=== PATIENT | male | born 1960 | race Hispanic/Latino ===

== ENCOUNTER 2017-01-01 19:01 | Inpatient (IN) | payer MEDICARE ==
--- NOTE | 2017-01-01 22:01 | Emergency Department Report ---
HPI - General Chief Complaint: Chest Pain Time Seen by Provider: 01/01/17 21:25 - HPI HPI: Room 18 The patient is a 56-year-old male presenting with a chief complaint of chest pain. Patient states his symptoms began this afternoon at 17:30 while standing in the kitchen. The patient states he developed substernal chest pain radiating to his left neck and left upper extremity described as a pressure in nature. Patient states she became short of breath and diaphoretic. Patient is to nausea but denies vomiting. The patient currently gives his pain a score of 7/10. Location: Left chest, see above Duration: Constant since 17:30 Quality: Pressure Severity: 7/10 Modifying factors: [see above] Context: [see above] Mode of transportation: [not driving] ED Past Medical Hx - Past Medical History Previous Medical History?: Yes Hx Hypertension: Yes Hx CVA: Yes (TIA) Hx Heart Attack/AMI: Yes (1988 & 1998) Hx Kidney Stones: Yes Hx COPD: Yes Additional medical history: "blood clots" - Surgical History Hx Coronary Stent: Yes Hx Open Heart Surgery: Yes Hx Pacemaker: Yes Additional Surgical History: shoulder(right) - Family History Family history: no significant - Social History Smoking Status: Never Smoker Substance Use Type: None - Medications Home Medications: Home Medications Medication Instructions Recorded Confirmed Last Taken Type Aspirin [Aspirin BABY CHEW TAB] 81 mg PO DAILY 03/28/15 05/10/16 Unknown History Atorvastatin Calcium [Lipitor] 20 mg PO QHS 03/28/15 05/10/16 Unknown History Fluticasone [Flonase] 1 spray NS QDAY 03/28/15 05/10/16 Unknown History Omeprazole [PriLOSEC] 20 mg PO BID 03/28/15 05/10/16 Unknown History Ranolazine [Ranexa] 500 mg PO BID 03/28/15 05/10/16 Unknown History Apixaban [Eliquis] 5 mg PO BID 04/24/16 05/10/16 Unknown History Clopidogrel [Plavix] 75 mg PO QDAY 05/10/16 05/10/16 Unknown History Ferrous Sulfate [Feosol 325 MG tab] 325 mg PO QDAY 05/10/16 05/10/16 Unknown History Promethazine [Phenergan TAB] 25 mg PO ONCE 05/10/16 05/10/16 Unknown History Lisinopril [Zestril TAB] 2.5 mg PO QDAY #30 tablet 05/13/16 Unknown Rx Metoprolol Xl [Metoprolol 50 mg PO QDAY #60 tablet 05/13/16 Unknown Rx SUCCINATE ER TAB] oxyCODONE /ACETAMINOPHEN [Percocet 1 tab PO Q12H PRN #10 tablet 05/13/16 Unknown Rx 5/325] ED Review of Systems ROS: Stated complaint: CHEST PAIN,HX OF CVA Other details as noted in HPI Comment: All other systems reviewed and negative Constitutional: diaphoresis Eyes: denies: eye pain, eye discharge, vision change ENT: denies: ear pain, throat pain Respiratory: shortness of breath. denies: cough, wheezing Cardiovascular: chest pain Endocrine: no symptoms reported Gastrointestinal: nausea. denies: vomiting Genitourinary: denies: urgency, dysuria Musculoskeletal: denies: back pain, joint swelling, arthralgia Skin: denies: rash, lesions Neurological: paresthesias Psychiatric: denies: anxiety, depression Hematological/Lymphatic: denies: easy bleeding, easy bruising Physical Exam - Physical Exam Vital Signs: Vital Signs 01/01/17 01/01/17 19:53 21:23 Temperature 98.2 F 98.4 F Pulse Rate 80 73 Respiratory 20 16 Rate Blood Pressure 113/72 117/71 [Left] O2 Sat by Pulse 100 99 Oximetry Physical Exam: GENERAL: The patient is well-developed well-nourished male lying on stretcher not appearing to be in acute distress. [] HEENT: Normocephalic. Atraumatic. Extraocular motions are intact. Patient has moist mucous membranes. NECK: Supple. No meningitic signs are noted. There is no adenopathy noted. CHEST/LUNGS: Clear to auscultation. There is no respiratory distress noted. HEART/CARDIOVASCULAR: Regular. There is no tachycardia. There is no gallop rub or murmur. ABDOMEN: Abdomen is soft, nontender. Patient has normal bowel sounds. There is no abdominal distention. SKIN: There is no rash. There is no edema. There is no diaphoresis. NEURO: The patient is awake, alert, and oriented. The patient is cooperative. The patient has normal speech MUSCULOSKELETAL: There is no evidence of acute injury. ED Course Vital Signs 01/01/17 01/01/17 19:53 21:23 Temperature 98.2 F 98.4 F Pulse Rate 80 73 Respiratory 20 16 Rate Blood Pressure 113/72 117/71 [Left] O2 Sat by Pulse 100 99 Oximetry ED Medical Decision Making - Lab Data Result diagrams: 01/01/17 22:14 01/01/17 22:14 Laboratory Tests 01/01/17 01/01/17 22:14 22:14 WBC 6.0 RBC 4.47 Hgb 13.7 Hct 41.0 MCV 92 MCH 31 MCHC 33 RDW 13.5 Plt Count 145 Lymph % (Auto) 18.0 [place] % (Auto) 9.9 H Eos % (Auto) 1.8 Baso % (Auto) 0.4 Lymph # 1.1 L [place] # 0.6 Eos # 0.1 Baso # 0.0 Seg Neutrophils % 69.9 Seg Neutrophils # 4.2 Sodium 136 L Potassium 4.4 Chloride 100.9 Carbon Dioxide 19 L Anion Gap 21 BUN 9 Creatinine 0.7 L Estimated GFR > 60 BUN/Creatinine Ratio 12.85 Glucose 90 Calcium 8.6 Troponin T < 0.010 - EKG Data -: EKG Interpreted by Me Rate: normal - EKG Data When compared to previous EKG there are: changes noted Interpretation: other (paced rhythm with frequent PVCs) - Radiology Data Radiology results: image reviewed (chest x-ray) interpreted by me: Chest x-ray- no focal infiltrates, no pneumothorax - Differential Diagnosis ACS, GERD, pericarditis Critical care attestation.: If time is entered above; I have spent that time in minutes in the direct care of this critically ill patient, excluding procedure time. ED Disposition Clinical Impression: Chest pain Disposition: OP ADMITTED IP TO THIS HOSP Is pt being admited?: Yes Does the pt Need Aspirin: Yes Condition: Fair Instructions: Chest Pain (ED) Referrals: PRIMARY CARE, [Primary Care Provider] - 3-5 Days Time of Disposition: 23:22 (hospitalist paged)
[2017-01-01] MEDS ORDERED: ASPIRIN PO ONE (22:03)
[2017-01-01] MEDS ORDERED: SUBLIMAZE IV ONE (22:03)
[2017-01-01] MEDS ORDERED: ZOFRAN IV ONE (22:03)
[2017-01-01 22:52] LABS: Basophils % (Auto) 0.4 % (0.0-1.8); Eosinophils % (Auto) 1.8 % (0.0-4.3); Hemoglobin 13.7 gm/dl (11.8-15.2); Mean Corpuscular HGB Conc 33 % (32-34); Mean Corpuscular Hemoglobin 31 pg (28-32); Mean Corpuscular Volume 92 fl (84-94); Platelet Count 145 K/mm3 (140-440); Red Blood Count 4.47 M/mm3 (3.65-5.03); Red Cell Distribution Width 13.5 % (13.2-15.2)
[2017-01-01 23:02] LABS: BUN/Creatinine Ratio 12.85; Blood Urea Nitrogen 9 mg/dL (9-20); Calcium 8.6 mg/dL (8.4-10.2); Carbon Dioxide 19 mmol/L (22-30); Chloride 100.9 mmol/L (98-107); Glucose 90 mg/dL (75-100); Sodium 136 mmol/L (137-145)
[2017-01-01 23:15] LABS: Anion Gap 21 mmol/L; Potassium 4.4 mmol/L (3.6-5.0)
[2017-01-01 23:29] LABS: INR 1.07 (0.87-1.13); Partial Thromboplastin Time 24.9 Sec. (24.2-36.6)
[2017-01-02] MEDS ORDERED: BENADRYL IV ONE (00:12)
[2017-01-02] MEDS ORDERED: MILK OF MAGNESIA PO PRN (00:37)
[2017-01-02] MEDS ORDERED: TYLENOL PO PRN (00:37)
[2017-01-02] MEDS ORDERED: DULCOLAX PR PRN (00:37)
--- NOTE | 2017-01-02 00:41 | History and Physical Report ---
History of Present Illness Date of examination: 01/02/17 History of present illness: 56-year-old man with a history of coronary artery disease, hypertension, COPD, history of CVA comes emergency room with complaint of chest pain. Pain is in the left chest which she described as a sensation, constant lasting for an hour , intensity 7/10, radiating to the left arm. He cannot identify exacerbating or relieving factors. He admits to nausea, shortness of breath and diaphoresis. Patient denies cough, abdominal pain, hematochezia, dysuria, frequency, focal weakness, dysarthria, fever chills, polydipsia polyuria, hot or cold intolerance , easy bruisability, or rash or bleeding from mucosal membrane, rhinorrhea, epistaxis, earache, tinnitus, blurry vision, eye discharge, anxiety, depression. Other review of systems negative PAST SURGICAL HISTORY: CABG, cholecystectomy, AICD, she'll to surgery SOCIAL HISTORY: Denies alcohol, tobacco, drugs FAMILY HISTORY: Coronary artery disease Medications and Allergies Allergies Allergy/AdvReac Type Severity Reaction Status Date / Time Iodinated Contrast Media - Allergy Unknown Verified 03/28/15 12:52 IV Dye ketorolac tromethamine Allergy Unknown Verified 03/28/15 12:52 [From Toradol] morphine Allergy Unknown Verified 03/28/15 12:52 nitroglycerin Allergy Unknown Verified 03/28/15 12:52 Home Medications Medication Instructions Recorded Confirmed Last Taken Type Aspirin [Aspirin BABY CHEW TAB] 81 mg PO DAILY 03/28/15 05/10/16 Unknown History Atorvastatin Calcium [Lipitor] 20 mg PO QHS 03/28/15 05/10/16 Unknown History Fluticasone [Flonase] 1 spray NS QDAY 03/28/15 05/10/16 Unknown History Omeprazole [PriLOSEC] 20 mg PO BID 03/28/15 05/10/16 Unknown History Ranolazine [Ranexa] 500 mg PO BID 03/28/15 05/10/16 Unknown History Apixaban [Eliquis] 5 mg PO BID 04/24/16 05/10/16 Unknown History Clopidogrel [Plavix] 75 mg PO QDAY 05/10/16 05/10/16 Unknown History Ferrous Sulfate [Feosol 325 MG tab] 325 mg PO QDAY 05/10/16 05/10/16 Unknown History Promethazine [Phenergan TAB] 25 mg PO ONCE 05/10/16 05/10/16 Unknown History Lisinopril [Zestril TAB] 2.5 mg PO QDAY #30 tablet 05/13/16 Unknown Rx Metoprolol Xl [Metoprolol 50 mg PO QDAY #60 tablet 05/13/16 Unknown Rx SUCCINATE ER TAB] oxyCODONE /ACETAMINOPHEN [Percocet 1 tab PO Q12H PRN #10 tablet 05/13/16 Unknown Rx 5/325] Active Meds: Active Medications Apixaban (Eliquis) 5 mg PO BID [facility] Aspirin (Baby Aspirin) 81 mg PO DAILY MARY CARMEN Atorvastatin Calcium (Lipitor) 20 mg PO QHS MARY CARMEN Clopidogrel Bisulfate (Plavix) 75 mg PO QDAY MARY CARMEN Ferrous Sulfate (Feosol) 325 mg PO QDAY MARY CARMEN Fluticasone Propionate (Flonase) mcg NS QDAY MARY CARMEN Lisinopril (Zestril) 2.5 mg PO QDAY MARY CARMEN Metoprolol Succinate (Toprol Xl) 50 mg PO QDAY [facility] Miscellaneous Medication (Omeprazole [Prilosec]) 20 mg PO BID MARY CARMEN Ranolazine (Ranexa Er) 500 mg PO BID [facility] Exam - Physical Exam Narrative exam: Gen. appearance: Patient lying in bed, no apparent distress HEENT: Normocephalic, atraumatic, pupils equally round and reactive to light, extraocular movement intact, and no sclericterus,. No JVD or thyromegaly or nodule,neck supple, no carotid bruit ,mucous membranes moist, no exudate or erythema Heart: S1, S2, regular rate and rhythm Lungs: Clear to auscultation bilaterally, breathing comfortable Abdomen: Positive bowel sounds, nontender, nondistended, no organomegaly Extremity: No edema, cyanosis, clubbing Skin: No rash, nodules, warm, dry Neuro: Oriented 3, cranial nerves II-12 intact, speech is fluent, motor and sensory intact - Constitutional Vitals: Temp Pulse Resp BP Pulse Ox 98.4 F 71 18 117/71 99 01/01/17 21:23 01/01/17 22:20 01/01/17 22:20 01/01/17 21:23 01/01/17 22:20 Results - Labs CBC & Chem 7: 01/01/17 22:14 01/01/17 22:14 Labs: Abnormal lab results 01/01/17 01/01/17 Range/Units 22:14 22:14 [place] % (Auto) 9.9 H (0.0-7.3) % Lymph # 1.1 L (1.2-5.4) K/mm3 Sodium 136 L (137-145) mmol/L Carbon Dioxide 19 L (22-30) mmol/L Creatinine 0.7 L (0.8-1.5) mg/dL - Imaging and Cardiology EKG: image reviewed Chest x-ray: image reviewed Assessment and Plan Unstable angina Coronary artery disease Hypertension COPD Admits medicine Check cardiac enzymes, liver profile, consult cardiology Continue outpatient medications, DVT prophylaxis
[2017-01-02 04:23] LABS: Creatine Kinase 50 units/L (55-170)
[2017-01-02] MEDS: FLONASE NS SCH (09:00)
[2017-01-02] MEDS: BABY ASPIRIN PO SCH (09:11)
[2017-01-02] MEDS: PROTONIX PO SCH ×2 (09:11→22:00)
[2017-01-02] MEDS: ELIQUIS PO SCH ×2 (09:11→22:00)
[2017-01-02] MEDS: TOPROL XL PO SCH (09:12)
[2017-01-02] MEDS: PLAVIX PO SCH (09:12)
[2017-01-02] MEDS: FEOSOL PO SCH (09:12)
[2017-01-02] MEDS: PERCOCET 5/325 PO PRN ×4 (09:20→21:59)
[2017-01-02] MEDS: ZOFRAN IV PRN (09:20)
[2017-01-02] MEDS ORDERED: RANEXA ER PO SCH (10:00)
--- NOTE | 2017-01-02 10:19 | XRay Report ---
AP CHEST: HISTORY: chest pain Borderline heart size. A 3-lead pacemaker device is in position. Previous CABG changes. The lungs are clear. No evidence for pneumonia, CHF or pneumothorax. IMPRESSION: Borderline heart size. Lungs clear.
[2017-01-02] MEDS: ZESTRIL PO SCH (10:30)
[2017-01-02 11:38] LABS: Creatine Kinase MB 1.1 ng/mL (0.0-4.0)
[2017-01-02 11:41] LABS: Creatine Kinase 43 units/L (55-170)
--- NOTE | 2017-01-02 11:46 | Consultation ---
History of Present Illness Consult date: 01/02/17 Consult reason: chest pain History of present illness: 56 YO man with h/o CAD s/p CABG, Ishcemic cardiomyopathy s/p ICD, and hypertension who presented to ED with episodes of left sided pressure type of chest pain with associated dyspnea. He has not had any syncope, pre-syncope, or palpitations. He is normally followed by a denture model maker in [place]. Of note, he was hospitalized at this hospital last year in 05/2016. Repeat coronary angiogram at that time had revealed stable CAD with patent SVG to RCA, patent SVG to Diagonal, occluded SVG to Circumflex system, and non obstructive disease of the [place] Circumflex and LAD. This was unchanged from previous coronary angiogram in 2011. He is currently chest pain free and PA has been ruled out with serial cardiac enzymes. ECG currently reveals NSR with Ventricular pacing and occasional PVCs. Past History Past Medical History: CAD, heart failure, hypertension Past Surgical History: CABG Social history: denies: smoking Family history: CAD Medications and Allergies Allergies Allergy/AdvReac Type Severity Reaction Status Date / Time Iodinated Contrast Media - Allergy Unknown Verified 03/28/15 12:52 IV Dye ketorolac tromethamine Allergy Unknown Verified 03/28/15 12:52 [From Toradol] morphine Allergy Unknown Verified 03/28/15 12:52 nitroglycerin Allergy Unknown Verified 03/28/15 12:52 Home Medications Medication Instructions Recorded Confirmed Last Taken Type Aspirin [Aspirin BABY CHEW TAB] 81 mg PO DAILY 03/28/15 05/10/16 Unknown History Atorvastatin Calcium [Lipitor] 20 mg PO QHS 03/28/15 05/10/16 Unknown History Fluticasone [Flonase] 1 spray NS QDAY 03/28/15 05/10/16 Unknown History Omeprazole [PriLOSEC] 20 mg PO BID 03/28/15 05/10/16 Unknown History Ranolazine [Ranexa] 500 mg PO BID 03/28/15 05/10/16 Unknown History Apixaban [Eliquis] 5 mg PO BID 04/24/16 05/10/16 Unknown History Clopidogrel [Plavix] 75 mg PO QDAY 05/10/16 05/10/16 Unknown History Ferrous Sulfate [Feosol 325 MG tab] 325 mg PO QDAY 05/10/16 05/10/16 Unknown History Promethazine [Phenergan TAB] 25 mg PO ONCE 05/10/16 05/10/16 Unknown History Lisinopril [Zestril TAB] 2.5 mg PO QDAY #30 tablet 05/13/16 Unknown Rx Metoprolol Xl [Metoprolol 50 mg PO QDAY #60 tablet 05/13/16 Unknown Rx SUCCINATE ER TAB] oxyCODONE /ACETAMINOPHEN [Percocet 1 tab PO Q12H PRN #10 tablet 05/13/16 Unknown Rx 5/325] Active Meds: Active Medications Acetaminophen (Tylenol) 650 mg PO Q4H PRN PRN Reason: Pain MILD(1-3)/Fever >100.5/LE Apixaban (Eliquis) 5 mg PO BID [facility] Last Admin: 01/02/17 09:11 Dose: 5 mg Aspirin (Baby Aspirin) 81 mg PO DAILY [facility] Last Admin: 01/02/17 09:11 Dose: 81 mg Atorvastatin Calcium (Lipitor) 20 mg PO QHS [facility] Bisacodyl (Dulcolax) 10 mg [place] QDAY PRN PRN Reason: Constipation unrelieved by [facility] Clopidogrel Bisulfate (Plavix) 75 mg PO QDAY [facility] Last Admin: 01/02/17 09:12 Dose: 75 mg Ferrous Sulfate (Feosol) 325 mg PO QDAY [facility] Last Admin: 01/02/17 09:12 Dose: 325 mg Fluticasone Propionate (Flonase) 50 mcg NS QDAY [facility] Lisinopril (Zestril) 2.5 mg PO QDAY [facility] Last Admin: 01/02/17 10:30 Dose: Not Given Magnesium Hydroxide (Milk Of Magnesia) 30 ml PO Q4H PRN PRN Reason: Constipation Metoprolol Succinate (Toprol Xl) 50 mg PO QDAY [facility] Last Admin: 01/02/17 09:12 Dose: 50 mg Ondansetron HCl (Zofran) 4 mg IV Q4H PRN PRN Reason: N/V unrelieved by Reglan Last Admin: 01/02/17 09:20 Dose: 4 mg Oxycodone/Acetaminophen (Percocet 5/325) 2 tab PO Q4H PRN PRN Reason: Pain, Moderate (4-6) Last Admin: 01/02/17 09:20 Dose: 2 tab Pantoprazole Sodium (Protonix) 20 mg PO BID [facility] Last Admin: 01/02/17 09:11 Dose: 20 mg Ranolazine (Ranexa Er) 500 mg PO BID [facility] Last Admin: 01/02/17 09:12 Dose: 500 mg Review of Systems All systems: negative (per hpi) Physical Examination Vital Signs Temp Pulse Resp BP Pulse Ox 98.2 F 80 20 113/72 100 01/01/17 19:53 01/01/17 19:53 01/01/17 19:53 01/01/17 19:53 01/01/17 19:53 General appearance: no acute distress HEENT: Positive: PERRL Neck: Positive: neck supple Cardiac: Positive: Reg Rate and Rhythm Lungs: Positive: clear to auscultation, Normal Breath Sounds Neuro: Positive: Grossly Intact Abdomen: Positive: Soft, Active Bowel Sounds Male genitourinary: Positive: normal Extremities: Absent: edema Results 01/01/17 22:14 01/01/17 22:14 Cardiac Enzymes 01/02/17 01/02/17 Range/Units 03:20 10:09 CK-MB (CK-2) 1.0 1.1 (0.0-4.0) ng/mL Assessment and Plan Recurrent chest pain in pt with CAD with CABG in 1988 - stable CAD based on cardiac cath within last 6 months. PA has been ruled out [facility] 2011: patent SVG to RCA patent SVG to Diagonal occluded SVG to Circumflex system non obstructive disease of the [place] Circumflex and LAD DIAZ was not used. Ejection fraction 30-35% No ischemia on MPI 04/24/16 [facility] 05/2016 unchanged from 2011 Ischemic Cardiomyopathy s/p AICD in situ Hx of DVT on eliquis as an outpatient Recommend: Will defer further ischemic evaluation. Will intensify anti-anginal therapy and increase Ranexa. If there is no recurrence of chest pain over next 24 hours, he can be discharged with outpatient f/u with his primary denture model maker.
--- NOTE | 2017-01-02 13:35 | Progress Note ---
Assessment and Plan Assessment and plan: 1. Chest pain. Patient with a left heart catheterization in 2011 which revealed patent SVG to RCA, patent SVG to diagonal, occluded SVG to circumflex system, nonobstructive disease of the [place] circumflex and LAD and DIAZ was not used. Ejection fraction 30-35%. Patient with no ischemia on MPI 04/24/16. LH was unchanged from 2011. Cardiology to defer ischemic evaluation. Cardiology recommends increase of her Ranexa to intensify antianginal therapy. 2. Ischemic cardiomyopathy. Patient is status post AICD in situ. 3. Hypertension. Resume antihypertensive medications. 4. COPD. Compensated. Continue current medications. 5. DVT prophylaxis. Patient on eliquis History Interval history: 56 YO man with h/o CAD s/p CABG, Ishcemic cardiomyopathy s/p ICD, and hypertension who presented to ED with episodes of left sided pressure type of chest pain with associated dyspnea. He has not had any syncope, pre-syncope, or palpitations. He is normally followed by a technical consultant in [place]. Of note, he was hospitalized at this hospital last year in 05/2016. Repeat coronary angiogram at that time had revealed stable CAD with patent SVG to RCA, patent SVG to Diagonal, occluded SVG to Circumflex system, and non obstructive disease of the [place] Circumflex and LAD. This was unchanged from previous coronary angiogram in 2011. He is currently chest pain free and MD has been ruled out with serial cardiac enzymes. ECG currently reveals NSR with Ventricular pacing and occasional PVCs. Hospitalist Physical - Constitutional Vitals: Temp Pulse Resp BP Pulse Ox 98.0 F 67 20 113/65 98 01/02/17 08:40 01/02/17 08:40 01/02/17 08:40 01/02/17 08:40 01/02/17 08:40 General appearance: Present: no acute distress - EENT Eyes: Present: PERRL, EOM intact ENT: hearing intact, clear oral mucosa, dentition normal - Neck Neck: Present: supple, normal ROM - Respiratory Respiratory effort: normal Respiratory: bilateral: CTA - Cardiovascular Rhythm: regular Heart Sounds: Present: S1 & S2. Absent: gallop, rub - Extremities Extremities: no ischemia, No edema, Full ROM - Abdominal General gastrointestinal: soft, non-tender, non-distended, normal bowel sounds - Integumentary Integumentary: Present: clear, warm, dry - Neurologic Neurologic: CNII-XII intact, moves all extremities Results - Labs CBC & Chem 7: 01/01/17 22:14 01/01/17 22:14 Labs: Laboratory Last Values WBC 6.0 K/mm3 (4.5-11.0) 01/01/17 22:14 RBC 4.47 M/mm3 (3.65-5.03) 01/01/17 22:14 Hgb 13.7 gm/dl (11.8-15.2) 01/01/17 22:14 Hct 41.0 % (35.5-45.6) 01/01/17 22:14 MCV 92 fl (84-94) 01/01/17 22:14 MCH 31 pg (28-32) 01/01/17 22:14 MCHC 33 % (32-34) 01/01/17 22:14 RDW 13.5 % (13.2-15.2) 01/01/17 22:14 Plt Count 145 K/mm3 (140-440) 01/01/17 22:14 Lymph % (Auto) 18.0 % (13.4-35.0) 01/01/17 22:14 [place] % (Auto) 9.9 % (0.0-7.3) H 01/01/17 22:14 Eos % (Auto) 1.8 % (0.0-4.3) 01/01/17 22:14 Baso % (Auto) 0.4 % (0.0-1.8) 01/01/17 22:14 Lymph # 1.1 K/mm3 (1.2-5.4) L 01/01/17 22:14 [place] # 0.6 K/mm3 (0.0-0.8) 01/01/17 22:14 Eos # 0.1 K/mm3 (0.0-0.4) 01/01/17 22:14 Baso # 0.0 K/mm3 (0.0-0.1) 01/01/17 22:14 Seg Neutrophils % 69.9 % (40.0-70.0) 01/01/17 22:14 Seg Neutrophils # 4.2 K/mm3 (1.8-7.7) 01/01/17 22:14 PT 13.8 Sec. (12.2-14.9) 01/01/17 22:28 INR 1.07 (0.87-1.13) 01/01/17 22:28 APTT 24.9 Sec. (24.2-36.6) 01/01/17 22:28 Sodium 136 mmol/L (137-145) L 01/01/17 22:14 Potassium 4.4 mmol/L (3.6-5.0) 01/01/17 22:14 Chloride 100.9 mmol/L (98-107) 01/01/17 22:14 Carbon Dioxide 19 mmol/L (22-30) L 01/01/17 22:14 Anion Gap 21 mmol/L 01/01/17 22:14 BUN 9 mg/dL (9-20) 01/01/17 22:14 Creatinine 0.7 mg/dL (0.8-1.5) L 01/01/17 22:14 Estimated GFR > 60 ml/min 01/01/17 22:14 BUN/Creatinine Ratio 12.85 % 01/01/17 22:14 Glucose 90 mg/dL (75-100) 01/01/17 22:14 Calcium 8.6 mg/dL (8.4-10.2) 01/01/17 22:14 Total Creatine Kinase 43 units/L (55-170) L 01/02/17 10:09 CK-MB (CK-2) 1.1 ng/mL (0.0-4.0) 01/02/17 10:09 CK-MB (CK-2) Rel Index 2.5 (0-4) 01/02/17 10:09 Troponin T < 0.010 ng/mL (0.00-0.029) 01/02/17 10:09
[2017-01-02] MEDS: RANEXA ER PO SCH (22:00)
[2017-01-03] MEDS: PERCOCET 5/325 PO PRN ×4 (02:36→20:13)
[2017-01-03 06:23] LABS: Basophils % (Auto) 0.9 % (0.0-1.8); Eosinophils % (Auto) 2.8 % (0.0-4.3); Hemoglobin 13.7 gm/dl (11.8-15.2); Mean Corpuscular HGB Conc 33 % (32-34); Mean Corpuscular Hemoglobin 30 pg (28-32); Mean Corpuscular Volume 90 fl (84-94); Platelet Count 118 K/mm3 (140-440); Red Blood Count 4.54 M/mm3 (3.65-5.03); Red Cell Distribution Width 13.6 % (13.2-15.2); White Blood Count 4.2 K/mm3 (4.5-11.0)
[2017-01-03 06:31] LABS: Anion Gap 17 mmol/L; BUN/Creatinine Ratio 11.25; Blood Urea Nitrogen 9 mg/dL (9-20); Calcium 8.7 mg/dL (8.4-10.2); Carbon Dioxide 23 mmol/L (22-30); Chloride 103.2 mmol/L (98-107); Glucose 99 mg/dL (75-100); Potassium 4.6 mmol/L (3.6-5.0); Sodium 139 mmol/L (137-145)
[2017-01-03] MEDS: FEOSOL PO SCH (10:12)
[2017-01-03] MEDS: PLAVIX PO SCH (10:12)
[2017-01-03] MEDS: ZESTRIL PO SCH (10:13)
[2017-01-03] MEDS: BABY ASPIRIN PO SCH (10:14)
[2017-01-03] MEDS: PROTONIX PO SCH ×2 (10:14→22:06)
[2017-01-03] MEDS: TOPROL XL PO SCH (10:14)
[2017-01-03] MEDS: ZOFRAN IV PRN ×2 (10:15→20:13)
[2017-01-03] MEDS: FLONASE NS SCH (10:23)
[2017-01-03] MEDS: RANEXA ER PO SCH ×2 (10:23→22:06)
[2017-01-03] MEDS: ELIQUIS PO SCH ×2 (10:23→22:06)
--- NOTE | 2017-01-03 12:00 | Admit Criteria Form ---
Admission Criteria Documentation: CHEST PAIN Clinical Indications for Admission to Inpatient Care (Place 'X' for any and all applicable criteria): Admission is indicated for chest pain and ANY ONE of the following(1)(2)(3)(4)(5 ): [ ]I. Angina with acute coronary syndrome (Also use Myocardial Infarction or Angina guideline) [ ]II. Hemodynamic instability [ ]III. Angina needing acute intervention as indicated by ALL of the following( 11)(12): [ ]a) Unstable angina is present as indicated by angina that is ANY ONE of the following: [ ]i) New onset [ ]ii) Nocturnal [ ]iii) Prolonged at rest [ ]iv) Progressive [X ]b) Angina warrants acute intervention as indicated by ANY ONE of the following: [ ]i) Recurrent angina (e.g, not responding as previously to treatment) [X ]ii) Angina at rest or with low-level activities despite initial medical therapy [ ]iii) New or presumably new ST-segment depression on ECG [ ]iv) Signs or symptoms of heart failure (eg, dyspnea, pulmonary edema) [ ]v) New or worsening mitral regurgitation [ ]vi) Hemodynamic instability [ ]vii) Dangerous arrhythmia (eg, sustained ventricular tachycardia) [ ]viii) History of percutaneous coronary intervention within 6 months [ ]ix) History of coronary artery bypass graft surgery [ ]x) ÓSCAR risk score of 2 or greater[A] [ ]xi) History of Diabetes(14) [ ]xii) High-risk cardiac ischemia findings on noninvasive testing (e.g, echocardiogram, treadmill testing, nuclear scan) [ ]xiii) Chronic renal insufficiency (ie, estimated GFR less than 60 mL/min/1.732m) [ ]xiv) Left ventricular ejection fraction less than 40% [ ]IV. Evidence of NV (eg, cardiac biomarkers positive, ST-segment elevation on ECG) also use Myocardial Infarction Criteria Form. [ ]V. Pulmonary edema [ ]. Respiratory distress [ ]VII. Chest pain indicative of serious diagnosis other than coronary artery disease (eg, aortic dissection) [ ]VIII. Contraindications and/or Inappropriate clinical situations for Observational Care in patients with Chest Pain, when ANY ONE of the following is required: [ ]a) Patient with risk factor for pulmonary embolism, acute coronary syndrome and myocardial infarction (18) [ ]b) Patient with Pulmonary embolism require an average LOS of 4.3 days, therefore emergency department observation management is inappropriate 18,23 [ ]c) Painful condition/s in the elderly, have the highest rate of recidivism after emergency department observation management (10.8%) 20,21,22 [ ]d) Elevated cardiac biomarker requires intensive and exhaustive care (19) [ ]IX. General contraindications and/or Inappropriate clinical situations for Observational Care in patients with Chest Pain, when ANY ONE of the following is required: [ ]a) Prediction of prolongation of LOS based on ANY ONE of the following may be considered as a contraindication for observational care 2, 3, 4, 5, 6, 7, 8, 9, 10, 11 [ ]i) Age > 65 yrs. [ ]ii) Patient arriving by ambulance [ ]iii) Patient with high acuity [ ]iv) Patient requiring vital sign monitoring [ ]v) Patient on IV medication [ ]b) Systolic blood pressures 180mmHg 3,12 [ ]c) Patient with altered mental status including delirium and other alteration of consciousness, (3) [ ]d) Patient whose discharge disposition will be to a halfway home or rehabilitation home should not be managed in Emergency Department Observation Unit. CMS rule requires 3 days hospital stay before such placement. 3,13 [ ]e) Patient with failure to thrive due to broad array of etiologies 3,16,17 [ ]f) Inability to ambulate 3,14 Extended stay beyond goal length of stay may be needed for (1)(28): [ ]a) Specific condition diagnosed after evaluation (eg, pulmonary embolism, aortic dissection) [ ]b) Unstable angina [ ]c) Continued suspicion of acute coronary syndrome with inability to complete needed cardiac evaluation (eg, patient clinically unable to undergo stress testing) [ ]d) Myocardial infarction (Contents from ANGINA and CHEST PAIN clinical indications for admission to inpatient care have been integrated in this form) The original [facility] [employer] content created by [employer] has been revised. The portions of the content which have been revised are identified through the use of italic text or in bold, and [facility] has neither reviewed nor approved the modified material. All other unmodified content is copyright [facility] [employer]. Please see references footnoted in the original [facility] [employer] edition 2016 Admission Criteria Met: Yes
--- NOTE | 2017-01-03 12:57 | Progress Note ---
Assessment and Plan Assessment and plan: 1. Chest pain. Patient with a left heart catheterization in 2011 which revealed patent SVG to RCA, patent SVG to diagonal, occluded SVG to circumflex system, nonobstructive disease of the [place] circumflex and LAD and DIAZ was not used. Ejection fraction 30-35%. Patient with no ischemia on MPI 04/24/16. LH was unchanged from 2011. Cardiology to defer ischemic evaluation. Cardiology recommends increase of her Ranexa to intensify antianginal therapy. However, patient still complaining of chest pain. 2. Ischemic cardiomyopathy. Patient is status post AICD in situ. 3. Hypertension. Resume antihypertensive medications. 4. COPD. Compensated. Continue current medications. 5. DVT prophylaxis. Patient on eliquis History Interval history: Patient is still complaining of chest pain 04/16 in intensity. Hospitalist Physical - Constitutional Vitals: Temp Pulse Resp BP Pulse Ox 97.4 F L 74 20 116/60 99 01/03/17 07:30 01/03/17 10:14 01/03/17 07:30 01/03/17 10:14 01/03/17 05:16 General appearance: Present: no acute distress - EENT Eyes: Present: PERRL, EOM intact ENT: hearing intact, clear oral mucosa, dentition normal - Neck Neck: Present: supple, normal ROM - Respiratory Respiratory effort: normal Respiratory: bilateral: CTA - Cardiovascular Rhythm: regular Heart Sounds: Present: S1 & S2. Absent: gallop, rub - Extremities Extremities: no ischemia, No edema, Full ROM - Abdominal General gastrointestinal: soft, non-tender, non-distended, normal bowel sounds - Integumentary Integumentary: Present: clear, warm, dry - Neurologic Neurologic: CNII-XII intact, moves all extremities Results - Labs CBC & Chem 7: 01/03/17 05:33 01/03/17 05:33 Labs: Laboratory Last Values WBC 4.2 K/mm3 (4.5-11.0) L 01/03/17 05:33 RBC 4.54 M/mm3 (3.65-5.03) 01/03/17 05:33 Hgb 13.7 gm/dl (11.8-15.2) 01/03/17 05:33 Hct 41.0 % (35.5-45.6) 01/03/17 05:33 MCV 90 fl (84-94) 01/03/17 05:33 MCH 30 pg (28-32) 01/03/17 05:33 MCHC 33 % (32-34) 01/03/17 05:33 RDW 13.6 % (13.2-15.2) 01/03/17 05:33 Plt Count 118 K/mm3 (140-440) L 01/03/17 05:33 Lymph % (Auto) 36.0 % (13.4-35.0) H 01/03/17 05:33 [place] % (Auto) 10.5 % (0.0-7.3) H 01/03/17 05:33 Eos % (Auto) 2.8 % (0.0-4.3) 01/03/17 05:33 Baso % (Auto) 0.9 % (0.0-1.8) 01/03/17 05:33 Lymph # 1.5 K/mm3 (1.2-5.4) 01/03/17 05:33 [place] # 0.4 K/mm3 (0.0-0.8) 01/03/17 05:33 Eos # 0.1 K/mm3 (0.0-0.4) 01/03/17 05:33 Baso # 0.0 K/mm3 (0.0-0.1) 01/03/17 05:33 Seg Neutrophils % 49.8 % (40.0-70.0) 01/03/17 05:33 Seg Neutrophils # 2.1 K/mm3 (1.8-7.7) 01/03/17 05:33 PT 13.8 Sec. (12.2-14.9) 01/01/17 22:28 INR 1.07 (0.87-1.13) 01/01/17 22:28 APTT 24.9 Sec. (24.2-36.6) 01/01/17 22:28 Sodium 139 mmol/L (137-145) 01/03/17 05:33 Potassium 4.6 mmol/L (3.6-5.0) 01/03/17 05:33 Chloride 103.2 mmol/L (98-107) 01/03/17 05:33 Carbon Dioxide 23 mmol/L (22-30) 01/03/17 05:33 Anion Gap 17 mmol/L 01/03/17 05:33 BUN 9 mg/dL (9-20) 01/03/17 05:33 Creatinine 0.8 mg/dL (0.8-1.5) 01/03/17 05:33 Estimated GFR > 60 ml/min 01/03/17 05:33 BUN/Creatinine Ratio 11.25 % 01/03/17 05:33 Glucose 99 mg/dL (75-100) 01/03/17 05:33 Calcium 8.7 mg/dL (8.4-10.2) 01/03/17 05:33 Total Creatine Kinase 43 units/L (55-170) L 01/02/17 10:09 CK-MB (CK-2) 1.1 ng/mL (0.0-4.0) 01/02/17 10:09 CK-MB (CK-2) Rel Index 2.5 (0-4) 01/02/17 10:09 Troponin T < 0.010 ng/mL (0.00-0.029) 01/02/17 10:09
--- NOTE | 2017-01-03 15:29 | Progress Note ---
Assessment and Plan Recurrent chest pain in pt with CAD with CABG in 1988 - stable CAD based on cardiac cath within last 6 months. [facility] 2011: patent SVG to RCA patent SVG to Diagonal occluded SVG to Circumflex system non obstructive disease of the [place] Circumflex and LAD DIAZ was not used. Ejection fraction 30-35% No ischemia on MPI 04/24/16 [facility] 05/2016 unchanged from 2011 Thrombocytopenia Ischemic Cardiomyopathy s/p AICD in situ Hx of DVT on eliquis as an outpatient Recommend: Continue medical therapy for coronary artery disease. Subjective Date of service: 01/03/17 Interval history: Patient resting in bed comfortably. He denies chest pain. Noted a drop in platelets since admission. Objective Vital Signs Temp Pulse Pulse Pulse Pulse Resp BP 01/03/17 11:00 70 20 01/03/17 10:14 74 116/60 01/03/17 10:13 74 116/60 01/03/17 07:30 97.4 F L 66 20 01/03/17 05:16 01/03/17 04:23 70 01/02/17 23:00 98.8 F 69 18 01/02/17 21:29 01/02/17 19:48 98.0 F 73 18 01/02/17 16:20 97.4 F L 71 20 BP BP Pulse Ox 01/03/17 11:00 97 01/03/17 10:14 01/03/17 10:13 01/03/17 07:30 116/60 01/03/17 05:16 99 01/03/17 04:23 01/02/17 23:00 110/59 96 01/02/17 21:29 98 01/02/17 19:48 113/55 100 01/02/17 16:20 101/56 94 - Physical Examination General: No Apparent Distress HEENT: Positive: PERRL Neck: Positive: neck supple Cardiac: Positive: Reg Rate and Rhythm Lungs: Positive: Decreased Breath Sounds Neuro: Positive: Grossly Intact Extremities: Absent: edema - Labs and Meds CBC 01/03/17 Range/Units 05:33 WBC 4.2 L (4.5-11.0) K/mm3 RBC 4.54 (3.65-5.03) M/mm3 Hgb 13.7 (11.8-15.2) gm/dl Hct 41.0 (35.5-45.6) % Plt Count 118 L (140-440) K/mm3 Lymph # 1.5 (1.2-5.4) K/mm3 [place] # 0.4 (0.0-0.8) K/mm3 Eos # 0.1 (0.0-0.4) K/mm3 Baso # 0.0 (0.0-0.1) K/mm3 Comprehensive Metabolic Panel 01/03/17 Range/Units 05:33 Sodium 139 (137-145) mmol/L Potassium 4.6 (3.6-5.0) mmol/L Chloride 103.2 (98-107) mmol/L Carbon Dioxide 23 (22-30) mmol/L BUN 9 (9-20) mg/dL Creatinine 0.8 (0.8-1.5) mg/dL Glucose 99 (75-100) mg/dL Calcium 8.7 (8.4-10.2) mg/dL - Imaging and Cardiology EKG: image reviewed
[2017-01-03] MEDS ORDERED: AMBIEN PO PRN (20:07)
[2017-01-04] MEDS: ZOFRAN IV PRN ×2 (05:38→09:23)
[2017-01-04] MEDS: PERCOCET 5/325 PO PRN ×2 (05:38→09:38)
[2017-01-04 09:06] VITALS: BP 100/52
[2017-01-04] MEDS: PROTONIX PO SCH (09:21)
[2017-01-04] MEDS: TOPROL XL PO SCH (09:21)
[2017-01-04] MEDS: BABY ASPIRIN PO SCH (09:21)
[2017-01-04] MEDS: ZESTRIL PO SCH (09:22)
[2017-01-04] MEDS: RANEXA ER PO SCH (09:23)
[2017-01-04] MEDS: ELIQUIS PO SCH (09:23)
[2017-01-04] MEDS: FEOSOL PO SCH (09:23)
[2017-01-04] MEDS: PLAVIX PO SCH (09:23)
[2017-01-04 10:05] LABS: Hematocrit 43.1 % (35.5-45.6); Hemoglobin 14.1 gm/dl (11.8-15.2); Mean Corpuscular HGB Conc 33 % (32-34); Mean Corpuscular Hemoglobin 30 pg (28-32); Mean Corpuscular Volume 93 fl (84-94); Platelet Count 128 K/mm3 (140-440); Red Blood Count 4.66 M/mm3 (3.65-5.03); Red Cell Distribution Width 13.6 % (13.2-15.2); White Blood Count 4.8 K/mm3 (4.5-11.0)
--- NOTE | 2017-01-04 10:42 | Progress Note ---
Assessment and Plan Recurrent chest pain in pt with CAD with CABG in 1988 - stable CAD based on cardiac cath within last 6 months. [facility] 2011: patent SVG to RCA patent SVG to Diagonal occluded SVG to Circumflex system non obstructive disease of the [place] Circumflex and LAD DIAZ was not used. Ejection fraction 30-35% No ischemia on MPI 04/24/16 [facility] 05/2016 unchanged from 2011 Thrombocytopenia Ischemic Cardiomyopathy s/p AICD in situ Hx of DVT on eliquis as an outpatient Recommend: Continue medical therapy for coronary artery disease and ischemic cardiomyopathy. Cardiac status is stable. Subjective Date of service: 01/04/17 Interval history: Patient resting in bed comfortably. He denies chest pain. Objective Vital Signs Temp Pulse Pulse Pulse Resp BP BP 01/04/17 09:21 70 100/52 01/04/17 08:00 97.3 F L 75 20 01/04/17 05:52 98.0 F 69 20 01/04/17 04:00 77 01/04/17 00:51 97.9 F 74 74 18 01/03/17 20:39 97.4 F L 62 20 97/57 01/03/17 16:55 98.1 F 84 20 104/73 01/03/17 12:05 97.8 F 78 20 105/70 01/03/17 12:00 82 01/03/17 11:00 70 20 BP Pulse Ox 01/04/17 09:21 01/04/17 08:00 100/52 98 01/04/17 05:52 130/17 98 01/04/17 04:00 01/04/17 00:51 99/56 98 01/03/17 20:39 99 01/03/17 16:55 97 01/03/17 12:05 97 01/03/17 12:00 01/03/17 11:00 97 - Physical Examination General: No Apparent Distress HEENT: Positive: PERRL Neck: Positive: neck supple Cardiac: Positive: Other (v-paced) Lungs: Positive: Decreased Breath Sounds Neuro: Positive: Grossly Intact Extremities: Absent: edema - Labs and Meds CBC 01/04/17 Range/Units 09:54 WBC 4.8 (4.5-11.0) K/mm3 RBC 4.66 (3.65-5.03) M/mm3 Hgb 14.1 (11.8-15.2) gm/dl Hct 43.1 (35.5-45.6) % Plt Count 128 L (140-440) K/mm3 - Imaging and Cardiology EKG: image reviewed
--- NOTE | 2017-01-04 10:42 | Discharge Summary ---
Providers - Providers Date of Admission: 01/02/17 00:37 Date of discharge: 01/04/17 Attending physician: GEOVANNI RICKETTS Primary care physician: PRODUCT MERCHANDISER Hospitalization Reason for admission: chest pain Condition: Fair Pertinent studies: cxr-no acute abn Hospital course: Mr. Cox presented to the ER with chest pain, acute myocardial infarction was ruled out based negative cardiac enzymes; he was seen by the ice cream dipper and no further cardiac intervention was recommended; cardiology increased ranexa to 1000mg bid; he was cleared for discharge by cardiology for outpatient follow up. Condition at discharge - stable 31 minutes spent on discharge Disposition: DISCHARGED TO HOME OR SELFCARE - Discharge Diagnoses (1) Chest pain Status: Acute Qualifiers: Chest pain type: C Comment: due to GERD (2) Coronary artery disease Status: Chronic Qualifiers: Coronary Disease-Associated Artery/Lesion type: C [place] vs. transplanted heart: N Associated angina: A (3) HLD (hyperlipidemia) Status: Chronic Qualifiers: Hyperlipidemia type: H Core Measure Documentation - Palliative Care Palliative Care/ Comfort Measures: Not Applicable - Core Measures Any of the following diagnoses?: none Exam - Constitutional Vitals: Temp Pulse Resp BP Pulse Ox 97.3 F L 70 20 100/52 98 01/04/17 08:00 01/04/17 09:21 01/04/17 08:00 01/04/17 09:21 01/04/17 08:00 General appearance: Present: no acute distress, well-nourished - EENT Eyes: Present: PERRL, EOM intact. Absent: scleral icterus, conjunctival injection ENT: hearing intact, clear oral mucosa, no oropharyngeal erythema, no poor dentition - Neck Neck: Present: supple, normal ROM. Absent: enlarged thyroid, masses or JVD - Respiratory Respiratory effort: normal Respiratory: negative: diminished, rales, rhonchi, wheezing - Cardiovascular Rhythm: regular Heart Sounds: Present: S1 & S2. Absent: gallop - Extremities Extremities: no ischemia, pulses intact, pulses symmetrical, No edema Peripheral Pulses: within normal limits - Abdominal General gastrointestinal: Present: soft, non-tender, non-distended, normal bowel sounds Male genitourinary: Present: deferred - Rectal Rectal Exam: deferred - Integumentary Integumentary: Present: clear - Musculoskeletal Musculoskeletal: strength equal bilaterally, generalized weakness - Psychiatric Psychiatric: appropriate mood/affect, intact judgment & insight, cooperative - Neurologic Neurologic: CNII-XII intact, moves all extremities Plan Activity: advance as tolerated Diet: low cholesterol, low salt Follow up with: PRIMARY CAREMD [Primary Care Provider] - 3-5 Days LUÍS ALMODOVAR MD [Staff Physician] - 7 Days Prescriptions: Ranolazine ER [Ranexa ER] 1,000 mg PO BID #60 tablet
--- NOTE | 2017-01-04 13:25 | Query- Chest Pain ---
Aissatou Dempsey Tony Date:____01/04/17 Junior Mechanical Engineer/CDS:___Matt Navarroanne marie Phone#: [phone] Exercise your independent professional judgment when responding to query. Questions asked do not imply a particular answer is desired or expected. We greatly appreciate your clarification on this issue. Clinical Documentation States: 56 year old male was admitted on 01/02/17. The patient was admitted for chest pain. The progress note (01/03/17) states " Cardiac status is stable, we'll continue medial therapy for small vessel coronary artery disease and ischemic cardiomyopathy. " The Progress note (01/03/17) assessment and plan states " Chest pain. Patient with a left heart catheterization 2011 . Ischemic cardiomyopathy " Please document the etiology of Chest Pain: [ ] Myocardial Infarction [ ] Pneumonia [ ] Mediastinitis [ ] Costochondritis [ ] Pulmonary Embolism [ ] Coronary Artery Disease [x ] GERD [ ] Other: [ ] Comment/Explanation: Present on Admission: [ x] Yes (Y) [ ] Clinically undeterminable (W) [ ] No(N) Please document response in your Progress Notes and/or Discharge Summary and indicate if the condition was present on admission. VÍCTOR
== END 2017-01-04 13:40 | disposition home or self-care (01) | DRG 392 ==
LOC: ED 19:01 → 4A 01-02 00:37
PROVIDERS: ADMIT Internal Medicine; ATTEND Hospitalist
DX: K21.9 Gastro-esophageal reflux disease without esophagitis (principal); I25.110 Atherosclerotic heart disease of native coronary artery with unstable angina pectoris; I25.5 Ischemic cardiomyopathy; I10 Essential (primary) hypertension; J44.9 Chronic obstructive pulmonary disease, unspecified; D69.6 Thrombocytopenia, unspecified; Z86.73 Personal history of transient ischemic attack (TIA), and cerebral infarction without residual deficits; Z87.442 Personal history of urinary calculi; Z95.0 Presence of cardiac pacemaker; Z95.1 Presence of aortocoronary bypass graft; Z90.49 Acquired absence of other specified parts of digestive tract; Z82.49 Family history of ischemic heart disease and other diseases of the circulatory system; Z88.6 Allergy status to analgesic agent; Z88.8 Allergy status to other drugs, medicaments and biological substances; Z91.041 Radiographic dye allergy status; Z79.82 Long term (current) use of aspirin
CPT/HCPCS: 36415; 71010; 80048; 82550; 82553; 84484; 85025; 85027; 85610; 85730; 93005; 93010; 96374; 96375; A9270-GY; J1200; J2405; J3010

== ENCOUNTER 2017-03-16 18:22 | Inpatient (IN) | payer MEDICARE ==
[2017-03-16 19:26] LABS: Basophils % (Auto) 0.6 % (0.0-1.8); Eosinophils % (Auto) 1.2 % (0.0-4.3); Hematocrit 41.1 % (35.5-45.6); Mean Corpuscular HGB Conc 34 % (32-34); Mean Corpuscular Hemoglobin 31 pg (28-32); Mean Corpuscular Volume 92 fl (84-94); Platelet Count 124 K/mm3 (140-440); Red Blood Count 4.47 M/mm3 (3.65-5.03); Red Cell Distribution Width 13.7 % (13.2-15.2); White Blood Count 5.7 K/mm3 (4.5-11.0)
[2017-03-16 19:35] LABS: INR 0.98 (0.87-1.13)
[2017-03-16 19:36] LABS: Partial Thromboplastin Time 27.5 Sec. (24.2-36.6)
[2017-03-16 19:44] LABS: Anion Gap 19 mmol/L; BUN/Creatinine Ratio 21.66; Blood Urea Nitrogen 13 mg/dL (9-20); Calcium 9.1 mg/dL (8.4-10.2); Carbon Dioxide 24 mmol/L (22-30); Glucose 135 mg/dL (75-100); Potassium 3.5 mmol/L (3.6-5.0); Sodium 142 mmol/L (137-145)
[2017-03-16] MEDS ORDERED: ZOFRAN IV ONE (20:48)
[2017-03-16] MEDS ORDERED: DILAUDID IV ONE (20:48)
--- NOTE | 2017-03-16 20:49 | Emergency Department Report ---
ED Chest Pain HPI - General Chief Complaint: Chest Pain Stated Complaint: CHEST PAIN Time Seen by Provider: 03/16/17 20:33 Source: patient, RN notes reviewed, old records reviewed Mode of arrival: Ambulatory Limitations: No Limitations - History of Present Illness Initial Comments: This is a 56-year-old male. I have evaluated him in the past. His mobile phlebotomist is not local. Past medical history includes heart disease status post CABG, ischemic cardiac myopathy with an ICD, hypertension, history of DVT, currently on anticoagulation ( eliquis) The patient endorses compliance with his anticoagulation. The patient presents to the ER complaining of chest pain. The chest pain is left-sided. It radiates to the back, arm and neck. There is shortness of breath, nausea and diaphoresis. It is intermittent. It worsens with physical exertion and decreases with rest. There is no leg pain. There is no leg swelling. No recent trips greater than 4 hours. No recent hospitalizations. Patient states that his pain typically improves with hydromorphone. The patient had a cardiac catheterization performed at this hospital in June , the overall recommendations were to continue current medical therapy and risk factor modification. Patient was seen in conjunction with cardiology, and he recommended improving/ optimizing his antianginal therapy. The patient indicates he does not develop anaphylaxis to aspirin, and he can take aspirin. MD Complaint: chest pain -: Gradual Onset: during rest Pain Location: left chest Pain Radiation: LUE Severity: moderate Quality: aching Consistency: intermittent Improves With: medication-other, movement Worsens With: exertion re: nausea, dyspnea Treatments Prior to Arrival: aspirin Aspirin use within the Past 7 Days: (1) Yes - Related Data On Oral Contraceptives: No Home Medications Medication Instructions Recorded Confirmed Last Taken Aspirin [Aspirin BABY CHEW TAB] 81 mg PO DAILY 03/28/15 03/16/17 Unknown Atorvastatin Calcium [Lipitor] 20 mg PO QHS 03/28/15 03/16/17 Unknown Fluticasone [Flonase] 1 spray NS QDAY 03/28/15 03/16/17 Unknown Omeprazole [PriLOSEC] 20 mg PO BID 03/28/15 03/16/17 Unknown Apixaban [Eliquis] 5 mg PO BID 04/24/16 03/16/17 Unknown Clopidogrel [Plavix] 75 mg PO QDAY 05/10/16 03/16/17 Unknown Ferrous Sulfate [Feosol 325 MG tab] 325 mg PO QDAY 05/10/16 03/16/17 Unknown Promethazine [Phenergan TAB] 25 mg PO ONCE 05/10/16 03/16/17 Unknown Previous Rx's Medication Instructions Recorded Last Taken Type Lisinopril [Zestril TAB] 2.5 mg PO QDAY #30 tablet 05/13/16 Unknown Rx Metoprolol Xl [Metoprolol 50 mg PO QDAY #60 tablet 05/13/16 Unknown Rx SUCCINATE ER TAB] oxyCODONE /ACETAMINOPHEN [Percocet 1 tab PO Q12H PRN #10 tablet 05/13/16 Unknown Rx 5/325 mg] Ranolazine ER [Ranexa ER] 1,000 mg PO BID #60 tablet 01/04/17 Unknown Rx Allergies Allergy/AdvReac Type Severity Reaction Status Date / Time Iodinated Contrast Media - Allergy Unknown Verified 03/16/17 18:59 IV Dye ketorolac tromethamine Allergy Unknown Verified 03/16/17 18:59 [From Toradol] morphine Allergy Unknown Verified 03/16/17 18:59 nitroglycerin Allergy Unknown Verified 03/16/17 18:59 ÓSCAR score - Óscar Score Age > 65: (0) No Aspirin use within the Past 7 Days: (1) Yes 3 or more CAD Risk Factors: (1) Yes 2 or more Angina events in past 24 hrs: (1) Yes Known CAD with more than 50% Stenosis: (0) No Elevated Cardiac Markers: (0) No ST Deviation Greater than 0.5mm: (0) No ÓSCAR Score: 3 ED Review of Systems ROS: Stated complaint: CHEST PAIN Other details as noted in HPI Constitutional: malaise Eyes: denies: vision change ENT: denies: epistaxis Respiratory: shortness of breath Cardiovascular: chest pain Gastrointestinal: denies: melena, hematochezia Genitourinary: as per HPI Musculoskeletal: back pain Skin: denies: lesions Neurological: weakness Psychiatric: anxiety ED Past Medical Hx - Past Medical History Hx Hypertension: Yes Hx CVA: Yes (TIA) Hx Heart Attack/AMI: Yes (1988 & 1998) Hx Congestive Heart Failure: Yes Hx Kidney Stones: Yes Hx COPD: Yes Additional medical history: "blood clots" - Surgical History Hx Coronary Stent: Yes Hx Open Heart Surgery: Yes (CABG/ TRIPLE BYPASS) Hx Pacemaker: Yes Hx Cholecystectomy: Yes Additional Surgical History: shoulder(right) - Social History Smoking Status: Never Smoker Substance Use Type: None - Medications Home Medications: Home Medications Medication Instructions Recorded Confirmed Last Taken Type Aspirin [Aspirin BABY CHEW TAB] 81 mg PO DAILY 03/28/15 03/16/17 Unknown History Atorvastatin Calcium [Lipitor] 20 mg PO QHS 03/28/15 03/16/17 Unknown History Fluticasone [Flonase] 1 spray NS QDAY 03/28/15 03/16/17 Unknown History Omeprazole [PriLOSEC] 20 mg PO BID 03/28/15 03/16/17 Unknown History Apixaban [Eliquis] 5 mg PO BID 04/24/16 03/16/17 Unknown History Clopidogrel [Plavix] 75 mg PO QDAY 05/10/16 03/16/17 Unknown History Ferrous Sulfate [Feosol 325 MG tab] 325 mg PO QDAY 05/10/16 03/16/17 Unknown History Promethazine [Phenergan TAB] 25 mg PO ONCE 05/10/16 03/16/17 Unknown History Lisinopril [Zestril TAB] 2.5 mg PO QDAY #30 tablet 05/13/16 03/16/17 Unknown Rx Metoprolol Xl [Metoprolol 50 mg PO QDAY #60 tablet 05/13/16 03/16/17 Unknown Rx SUCCINATE ER TAB] oxyCODONE /ACETAMINOPHEN [Percocet 1 tab PO Q12H PRN #10 tablet 05/13/16 Unknown Rx 5/325 mg] Ranolazine ER [Ranexa ER] 1,000 mg PO BID #60 tablet 01/04/17 03/16/17 Unknown Rx ED Physical Exam - General Limitations: No Limitations General appearance: alert, in no apparent distress - Head Head exam: Present: atraumatic, normocephalic - Eye Eye exam: Present: normal appearance, EOMI. Absent: nystagmus - ENT ENT exam: Present: normal exam, normal orophraynx, mucous membranes moist, normal external ear exam - Neck Neck exam: Present: normal inspection, full ROM. Absent: tenderness, meningismus - Respiratory Respiratory exam: Present: normal lung sounds bilaterally. Absent: respiratory distress, wheezes, rales, rhonchi, stridor, chest wall tenderness, accessory muscle use, decreased breath sounds, prolonged expiratory - Cardiovascular Cardiovascular Exam: Present: regular rate, normal rhythm, normal heart sounds. Absent: bradycardia, tachycardia, irregular rhythm, systolic murmur, diastolic murmur, rubs, gallop - GI/Abdominal GI/Abdominal exam: Present: soft, normal bowel sounds. Absent: distended, tenderness, guarding, rebound, rigid, pulsatile mass - Rectal Rectal exam: Present: deferred - Extremities Exam Extremities exam: Present: normal inspection, full ROM, normal capillary refill. Absent: tenderness, pedal edema, joint swelling, calf tenderness - Back Exam Back exam: Present: normal inspection, full ROM. Absent: tenderness, CVA tenderness (R), CVA tenderness (L), muscle spasm, paraspinal tenderness, vertebral tenderness - Neurological Exam Neurological exam: Present: alert, oriented X3, normal gait, other (Extraocular movements intact. Tongue midline. No facial droop. Facial sensation intact to light touch in the V1, V2, V3 distribution bilaterally. 5 and 5 strength in 4 extremities.. Sensation is intact to light touch in 4 extremities.). Absent : motor sensory deficit - Psychiatric Psychiatric exam: Present: anxious - Skin Skin exam: Present: warm, dry, intact, normal color. Absent: rash ED Course Vital Signs 03/16/17 03/16/17 03/16/17 18:53 20:09 20:15 Temperature 97.5 F L Pulse Rate 88 88 86 Respiratory 18 16 13 Rate Blood Pressure 128/90 148/76 O2 Sat by Pulse 97 97 97 Oximetry 03/16/17 03/16/17 03/16/17 20:31 21:01 21:31 Temperature Pulse Rate 87 82 81 Respiratory 17 14 11 L Rate Blood Pressure 140/66 181/85 147/83 O2 Sat by Pulse 95 95 88 Oximetry 03/16/17 03/16/17 03/16/17 22:01 22:31 23:01 Temperature Pulse Rate 82 77 80 Respiratory 15 8 L 11 L Rate Blood Pressure 158/83 145/64 137/64 O2 Sat by Pulse 94 94 93 Oximetry 03/16/17 03/16/17 03/17/17 23:19 23:31 00:00 Temperature Pulse Rate 79 79 73 Respiratory 18 16 18 Rate Blood Pressure 137/64 142/71 142/80 O2 Sat by Pulse 95 94 93 Oximetry 03/17/17 03/17/17 03/17/17 00:31 01:01 01:31 Temperature Pulse Rate 74 83 79 Respiratory 28 H 19 14 Rate Blood Pressure 131/67 145/96 125/58 O2 Sat by Pulse 90 92 94 Oximetry 03/17/17 03/17/17 03/17/17 02:00 02:31 03:00 Temperature Pulse Rate 75 73 72 Respiratory 10 L 17 15 Rate Blood Pressure 140/76 147/79 138/78 O2 Sat by Pulse 94 94 92 Oximetry - Reevaluation(s) Reevaluation #1: 03/16/17 21:32 differential diagnosis: GERD, gastritis, reflux, unstable angina , acute coronary syndrome, pneumonia, drug seeking behavior assessment and plan: 56-year-old male with multiple vascular risk factors, known history of ischemic heart disease, with reported typical chest pain. The patient appears quite comfortable at this time, his vital signs appear to be within normal limits, his EKG is abnormal, with multiple premature ventricular contractions. No pulmonary embolus or DVT risk factors with the exception of prior DVT, the patient is compliant with his systemic anticoagulation, he is saturating well, I think recurrent pulmonary embolus is unlikely. The patient will be treated empirically with hydromorphone for pain, as he is allergic to nitro, Toradol. He indicates no contraindication to systemic anticoagulation, therefore we will start him on a heparin drip. The case is discussed with the Hospital physician, Dr. Skinner, who accepts the patient to his service for possible acute coronary syndrome/unstable angina. The case is discussed with mobile phlebotomist repairer engine production, Dr. Bermudez, who agrees to this plan of care, indicates his group will see the patient is a consult in the morning. ED Medical Decision Making - Lab Data Result diagrams: 03/16/17 22:13 03/16/17 19:04 Vital Signs 03/16/17 03/16/17 03/16/17 18:53 20:09 20:15 Temperature 97.5 F L Pulse Rate 88 88 86 Respiratory 18 16 13 Rate Blood Pressure 128/90 148/76 O2 Sat by Pulse 97 97 97 Oximetry 03/16/17 03/16/17 20:31 21:01 Temperature Pulse Rate 87 82 Respiratory 17 14 Rate Blood Pressure 140/66 181/85 O2 Sat by Pulse 95 95 Oximetry Lab Results 03/16/17 03/16/17 03/16/17 Range/Units 19:04 19:04 19:04 WBC 5.7 (4.5-11.0) K/mm3 RBC 4.47 (3.65-5.03) M/mm3 Hgb 14.0 (11.8-15.2) gm/dl Hct 41.1 (35.5-45.6) % MCV 92 (84-94) fl MCH 31 (28-32) pg MCHC 34 (32-34) % RDW 13.7 (13.2-15.2) % Plt Count 124 L (140-440) K/mm3 Lymph % (Auto) 18.8 (13.4-35.0) % [place] % (Auto) 8.8 H (0.0-7.3) % Eos % (Auto) 1.2 (0.0-4.3) % Baso % (Auto) 0.6 (0.0-1.8) % Lymph # 1.1 L (1.2-5.4) K/mm3 [place] # 0.5 (0.0-0.8) K/mm3 Eos # 0.1 (0.0-0.4) K/mm3 Baso # 0.0 (0.0-0.1) K/mm3 Seg Neutrophils % 70.6 H (40.0-70.0) % Seg Neutrophils # 4.0 (1.8-7.7) K/mm3 PT 12.9 (12.2-14.9) Sec. INR 0.98 (0.87-1.13) APTT 27.5 (24.2-36.6) Sec. Sodium 142 (137-145) mmol/L Potassium 3.5 L (3.6-5.0) mmol/L Chloride 103.0 (98-107) mmol/L Carbon Dioxide 24 (22-30) mmol/L Anion Gap 19 mmol/L BUN 13 (9-20) mg/dL Creatinine 0.6 L (0.8-1.5) mg/dL Estimated GFR > 60 ml/min BUN/Creatinine Ratio 21.66 % Glucose 135 H (75-100) mg/dL Calcium 9.1 (8.4-10.2) mg/dL Troponin T < 0.010 (0.00-0.029) ng/mL - EKG Data -: EKG Interpreted by Me EKG shows normal: sinus rhythm - EKG Data 03/16/17 21:35 EKG #1 demonstrates normal sinus, 90 bpm, ventricular paced, premature ventricular contractions, right bundle branch block, abnormal EKG, not consistent with STEMI, when compared to prior EKG from December 2016, ventricular ventricular contractions are greater number. EKG #2 demonstrates ventricular pacemaker, 81 bpm, good capture, premature ventricular contractions, not consistent with STEMI. Neither EKG is consistent with Scarbarossa criteria. - Radiology Data Radiology results: image reviewed interpreted by me: xr chest: Chronic pulmonary vascular congestion. Left-sided ICD. Status post CABG. No acute disease. Cardiomegaly. Critical Care Time: Yes Critical care time in (mins) excluding proc time.: 35 Critical care attestation.: If time is entered above; I have spent that time in minutes in the direct care of this critically ill patient, excluding procedure time. Critical Care Time: Critical care time includes multiple bedside evaluations, interpretation of laboratory studies, radiology studies, discussion with multiple consulting services, including cardiology and hospital medicine. This includes time spent initiating heparin drip for possible unstable angina. This does not include procedure time. ED Disposition Clinical Impression: Unstable angina Disposition: OP ADMITTED IP TO THIS HOSP Is pt being admited?: Yes Does the pt Need Aspirin: Yes Condition: Stable Instructions: Angina (ED) Referrals: PRIMARY CARE, [Referring] - 3-5 Days
--- NOTE | 2017-03-16 21:08 | Admit Criteria Form ---
Admission Criteria Documentation: CHEST PAIN Clinical Indications for Admission to Inpatient Care (Place 'X' for any and all applicable criteria): Admission is indicated for chest pain and ANY ONE of the following(1)(2)(3)(4)(5 ): [ ]I. Angina with acute coronary syndrome (Also use Myocardial Infarction or Angina guideline) [ ]II. Hemodynamic instability [X]III. Angina needing acute intervention as indicated by ALL of the following( 11)(12): [X ]a) Unstable angina is present as indicated by angina that is ANY ONE of the following: [ X]i) New onset [ ]ii) Nocturnal [X ]iii) Prolonged at rest [ X]iv) Progressive [X ]b) Angina warrants acute intervention as indicated by ANY ONE of the following: [ ]i) Recurrent angina (e.g, not responding as previously to treatment) [ ]ii) Angina at rest or with low-level activities despite initial medical therapy [ ]iii) New or presumably new ST-segment depression on ECG [ ]iv) Signs or symptoms of heart failure (eg, dyspnea, pulmonary edema) [ ]v) New or worsening mitral regurgitation [ ]vi) Hemodynamic instability [ ]vii) Dangerous arrhythmia (eg, sustained ventricular tachycardia) [ ]viii) History of percutaneous coronary intervention within 6 months [ ]ix) History of coronary artery bypass graft surgery [X ]x) ÓSCAR risk score of 2 or greater[A] [ ]xi) History of Diabetes(14) [ ]xii) High-risk cardiac ischemia findings on noninvasive testing (e.g, echocardiogram, treadmill testing, nuclear scan) [ ]xiii) Chronic renal insufficiency (ie, estimated GFR less than 60 mL/min/1.732m) [ ]xiv) Left ventricular ejection fraction less than 40% [ ]IV. Evidence of WI (eg, cardiac biomarkers positive, ST-segment elevation on ECG) also use Myocardial Infarction Criteria Form. [ ]V. Pulmonary edema [ ]. Respiratory distress [ ]VII. Chest pain indicative of serious diagnosis other than coronary artery disease (eg, aortic dissection) [ ]VIII. Contraindications and/or Inappropriate clinical situations for Observational Care in patients with Chest Pain, when ANY ONE of the following is required: [ ]a) Patient with risk factor for pulmonary embolism, acute coronary syndrome and myocardial infarction (18) [ ]b) Patient with Pulmonary embolism require an average LOS of 4.3 days, therefore emergency department observation management is inappropriate 18,23 [ ]c) Painful condition/s in the elderly, have the highest rate of recidivism after emergency department observation management (10.8%) 20,21,22 [ ]d) Elevated cardiac biomarker requires intensive and exhaustive care (19) [ ]IX. General contraindications and/or Inappropriate clinical situations for Observational Care in patients with Chest Pain, when ANY ONE of the following is required: [ ]a) Prediction of prolongation of LOS based on ANY ONE of the following may be considered as a contraindication for observational care 2, 3, 4, 5, 6, 7, 8, 9, 10, 11 [ ]i) Age > 65 yrs. [ ]ii) Patient arriving by ambulance [ ]iii) Patient with high acuity [ ]iv) Patient requiring vital sign monitoring [ ]v) Patient on IV medication [ ]b) Systolic blood pressures 180mmHg 3,12 [ ]c) Patient with altered mental status including delirium and other alteration of consciousness, (3) [ ]d) Patient whose discharge disposition will be to a nursing home home or rehabilitation home should not be managed in Emergency Department Observation Unit. CMS rule requires 3 days hospital stay before such placement. 3,13 [ ]e) Patient with failure to thrive due to broad array of etiologies 3,16,17 [ ]f) Inability to ambulate 3,14 Extended stay beyond goal length of stay may be needed for (1)(28): [ ]a) Specific condition diagnosed after evaluation (eg, pulmonary embolism, aortic dissection) [ ]b) Unstable angina [ ]c) Continued suspicion of acute coronary syndrome with inability to complete needed cardiac evaluation (eg, patient clinically unable to undergo stress testing) [ ]d) Myocardial infarction (Contents from ANGINA and CHEST PAIN clinical indications for admission to inpatient care have been integrated in this form) The original [employer] content created by [employer] has been revised. The portions of the content which have been revised are identified through the use of italic text or in bold, and [email or web address] has neither reviewed nor approved the modified material. All other unmodified content is copyright [employer]. Please see references footnoted in the original [employer] edition 2016 Admission Criteria Met: Yes
[2017-03-16] MEDS ORDERED: HEPARIN 10,000 UNITS/10 ML IV ONE (21:37)
[2017-03-16] MEDS ORDERED: BABY ASPIRIN PO ONE (21:38)
[2017-03-16] MEDS ORDERED: PLAVIX PO ONE (21:38)
[2017-03-16] MEDS ORDERED: HEPARIN/ 0.45% NACL-25,000 UNIT/500 ML 25,000 UNIT/500 ML BAG IV SCH (22:00)
[2017-03-16 22:30] LABS: Hematocrit 39.5 % (35.5-45.6)
[2017-03-16 22:33] LABS: INR 1.15 (0.87-1.13)
[2017-03-16 22:46] LABS: Partial Thromboplastin Time < 20.0 Sec. (24.2-36.6)
[2017-03-17] MEDS ORDERED: PERCOCET 5/325 PO PRN (01:33)
--- NOTE | 2017-03-17 01:33 | History and Physical Report ---
History of Present Illness Date of examination: 03/16/17 Chief complaint: Chest pain History of present illness: Patient is a 56-year-old man with a history of early coronary artery disease, acute [place] status post CABG, hypertension, CVA, permanent pacemaker/aicd, left leg DVT on Eliquis because Coumadin wasn't working per patient, CHF and chronic narcotics user who states Dilaudid 1 mg doesn't help with the pains who presents with severe left sided chest pains radiating to shoulders and down his left arm that started around 3:30 AM this morning. The chest pain is intermittent lasting less than 30 minutes associated with dyspnea on exertion but without aggravating or relieving factors. Patient states dyspnea on exertion 5 weeks Past History Past Medical History: other (as hpi) Past Surgical History: cholecystectomy, CABG, cataract removal, hernia repair, tonsillectomy, Other (sinus surgery, cabg, "pacemaker") Social history: full code. denies: smoking, alcohol abuse, prescription drug abuse, IV drug use Family history: CAD (father had AMI age 36, mother had cad), hypertension Medications and Allergies Allergies Allergy/AdvReac Type Severity Reaction Status Date / Time Iodinated Contrast Media - Allergy Unknown Verified 03/16/17 18:59 IV Dye ketorolac tromethamine Allergy Unknown Verified 03/16/17 18:59 [From Toradol] morphine Allergy Unknown Verified 03/16/17 18:59 nitroglycerin Allergy Unknown Verified 03/16/17 18:59 Home Medications Medication Instructions Recorded Confirmed Last Taken Type Aspirin [Aspirin BABY CHEW TAB] 81 mg PO DAILY 03/28/15 03/16/17 Unknown History Atorvastatin Calcium [Lipitor] 20 mg PO QHS 03/28/15 03/16/17 Unknown History Fluticasone [Flonase] 1 spray NS QDAY 03/28/15 03/16/17 Unknown History Omeprazole [PriLOSEC] 20 mg PO BID 03/28/15 03/16/17 Unknown History Apixaban [Eliquis] 5 mg PO BID 04/24/16 03/16/17 Unknown History Clopidogrel [Plavix] 75 mg PO QDAY 05/10/16 03/16/17 Unknown History Ferrous Sulfate [Feosol 325 MG tab] 325 mg PO QDAY 05/10/16 03/16/17 Unknown History Promethazine [Phenergan TAB] 25 mg PO ONCE 05/10/16 03/16/17 Unknown History Lisinopril [Zestril TAB] 2.5 mg PO QDAY #30 tablet 05/13/16 03/16/17 Unknown Rx Metoprolol Xl [Metoprolol 50 mg PO QDAY #60 tablet 05/13/16 03/16/17 Unknown Rx SUCCINATE ER TAB] oxyCODONE /ACETAMINOPHEN [Percocet 1 tab PO Q12H PRN #10 tablet 05/13/16 Unknown Rx 5/325 mg] Ranolazine ER [Ranexa ER] 1,000 mg PO BID #60 tablet 01/04/17 03/16/17 Unknown Rx Active Meds: Active Medications Heparin Sodium/Sodium Chloride (Heparin/ 0.45% Nacl-25,000 Unit/500 Ml) 25,000 unit in 500 mls @ 20 mls/hr IV TITRATE MARY CARMEN; 1,000 UNITS/HR PRN Reason: Protocol Last Admin: 03/16/17 22:15 Dose: 1,000 units/hr, 20 mls/hr Review of Systems All systems: negative (as HPI and all other ROS reviewed and negative.) Exam - Physical Exam Narrative exam: GEN: WDWN, NAD, AWAKE, ALERT, ORIENTATED x 3 HEENT: NCAT, PERRL, EOMI, OP CLEAR NECK: SUPPLE, NO THYROMEGALY, NO JVD, NO LAD CVS: RRR, NORMAL S1S2 LUNGS/CHEST: CTA B, NORMAL CHEST EXPANSION B, GOOD AIR ENTRY B ABD: SOFT NTND, GBS, NO REBOUND OR GUARDING EXT/SKIN: ble EDEMA OR RASH MSK: FROM X 4 EXTREMITIES NEURO: CN 2-12 GROSSLY INTACT, NO FOCAL DEFICITS PSY: CALM - Constitutional Vitals: Temp Pulse Resp BP Pulse Ox 97.5 F L 80 11 L 137/64 93 03/16/17 18:53 03/16/17 23:01 03/16/17 23:01 03/16/17 23:01 03/16/17 23:01 Results - Labs CBC & Chem 7: 03/16/17 22:13 03/16/17 19:04 Labs: Abnormal lab results 03/16/17 03/16/17 03/16/17 Range/Units 19:04 19:04 22:13 Plt Count 124 L 102 L (140-440) K/mm3 [place] % (Auto) 8.8 H (0.0-7.3) % Lymph # 1.1 L (1.2-5.4) K/mm3 Seg Neutrophils % 70.6 H (40.0-70.0) % INR (0.87-1.13) APTT (24.2-36.6) Sec. Potassium 3.5 L (3.6-5.0) mmol/L Creatinine 0.6 L (0.8-1.5) mg/dL Glucose 135 H (75-100) mg/dL 03/16/17 Range/Units 22:13 Plt Count (140-440) K/mm3 [place] % (Auto) (0.0-7.3) % Lymph # (1.2-5.4) K/mm3 Seg Neutrophils % (40.0-70.0) % INR 1.15 H (0.87-1.13) APTT < 20.0 L (24.2-36.6) Sec. Potassium (3.6-5.0) mmol/L Creatinine (0.8-1.5) mg/dL Glucose (75-100) mg/dL - Imaging and Cardiology EKG: image reviewed Assessment and Plan Patient is a 56-year-old man with a history of early coronary artery disease, acute [place] status post CABG, hypertension, CVA, permanent pacemaker/aicd, left leg DVT on Eliquis because Coumadin wasn't working per patient, CHF and chronic narcotics user who states Dilaudid 1 mg doesn't help with the pains who presents with severe left sided chest pain radiating to shoulders and down his left arm that started around 3:30 AM this morning. The chest pain is intermittent lasting less than 30 minutes associated with dyspnea on exertion but without aggravating or relieving factors. It feels like prior AMI. Patient states dyspnea on exertion 5 weeks. -CP, negative troponin and EKG without STEMI, atypical: Serial cardiac enzymes, stress test a.m. Consulted Cardiology. -History of CHF, cxr pending -Left leg DVT, chronic: continue Eliquis -DVT prophylaxis: already on Eliquis full code
[2017-03-17] MEDS ORDERED: PHENERGAN PO ONE (02:00)
[2017-03-17] MEDS ORDERED: AMBIEN PO PRN (02:44)
[2017-03-17 07:56] LABS: Creatine Kinase MB 1.2 ng/mL (0.0-4.0)
[2017-03-17 07:57] LABS: Creatine Kinase 36 units/L (55-170)
--- NOTE | 2017-03-17 09:27 | XRay Report ---
PORTABLE CHEST INDICATION: Chest pain. COMPARISON: 05/10/2016 FINDINGS: Portable, frontal chest radiograph demonstrates stable cardiomediastinal silhouette/slight cardiomegaly, post CABG changes, left AICD with dual-chamber possibly tripolar leads and replaced right shoulder. Clear lungs without pleural effusions or CHF. CONCLUSION: No significant acute chest process with mild cardiomegaly and various postsurgical changes again noted, as described. Thank you for the opportunity to participate in this patient's care.
[2017-03-17] MEDS: TOPROL XL PO SCH (11:18)
[2017-03-17] MEDS: PROTONIX PO SCH ×2 (11:19→21:44)
[2017-03-17] MEDS: ZESTRIL PO SCH (11:19)
[2017-03-17] MEDS: RANEXA ER PO SCH ×2 (11:19→21:44)
[2017-03-17] MEDS: FEOSOL PO SCH (11:21)
[2017-03-17] MEDS: BABY ASPIRIN PO SCH (11:21)
[2017-03-17] MEDS: PLAVIX PO SCH (11:21)
[2017-03-17] MEDS: ELIQUIS PO SCH ×2 (11:22→21:44)
[2017-03-17] MEDS: FLONASE NS SCH (11:23)
[2017-03-17] MEDS: PERCOCET 5/325 PO PRN ×2 (12:44→21:45)
[2017-03-17] MEDS ORDERED: ZOFRAN IM ONE (13:01)
--- NOTE | 2017-03-17 14:10 | Consultation ---
History of Present Illness Consult date: 03/17/17 Consult reason: chest pain History of present illness: This is a 56yr old man with multiple medical problems. He has a history of CAD s /p 3 vessel CABG done in 1988. He has an Ischemic cardiomyopathy s/p ICD. Co- morbidities includes Hypertension and DVT for which he is on eliquis for anticoagulation. He is now was admitted with recurrent chest pain. He has not had any syncope, pre-syncope, or palpitations. 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 Of note, he was hospitalized at this hospital last year in 05/2016. Repeat coronary angiogram at that time had revealed stable CAD with patent SVG to RCA, patent SVG to Diagonal, occluded SVG to Circumflex system, and non obstructive disease of the [place] Circumflex and LAD. This was unchanged from previous coronary angiogram in 2011. Past History Past Medical History: other (as hpi) Past Surgical History: CABG Social history: full code Family history: CAD (father had AMI age 36, mother had cad), hypertension Medications and Allergies Allergies Allergy/AdvReac Type Severity Reaction Status Date / Time Iodinated Contrast Media - Allergy Unknown Verified 03/16/17 18:59 IV Dye ketorolac tromethamine Allergy Unknown Verified 03/16/17 18:59 [From Toradol] morphine Allergy Unknown Verified 03/16/17 18:59 nitroglycerin Allergy Unknown Verified 03/16/17 18:59 Home Medications Medication Instructions Recorded Confirmed Last Taken Type Aspirin [Aspirin BABY CHEW TAB] 81 mg PO DAILY 03/28/15 03/16/17 Unknown History Atorvastatin Calcium [Lipitor] 20 mg PO QHS 03/28/15 03/16/17 Unknown History Fluticasone [Flonase] 1 spray NS QDAY 03/28/15 03/16/17 Unknown History Omeprazole [PriLOSEC] 20 mg PO BID 03/28/15 03/16/17 Unknown History Apixaban [Eliquis] 5 mg PO BID 04/24/16 03/16/17 Unknown History Clopidogrel [Plavix] 75 mg PO QDAY 05/10/16 03/16/17 Unknown History Ferrous Sulfate [Feosol 325 MG tab] 325 mg PO QDAY 05/10/16 03/16/17 Unknown History Promethazine [Phenergan TAB] 25 mg PO ONCE 05/10/16 03/16/17 Unknown History Lisinopril [Zestril TAB] 2.5 mg PO QDAY #30 tablet 05/13/16 03/16/17 Unknown Rx Metoprolol Xl [Metoprolol 50 mg PO QDAY #60 tablet 05/13/16 03/16/17 Unknown Rx SUCCINATE ER TAB] oxyCODONE /ACETAMINOPHEN [Percocet 1 tab PO Q12H PRN #10 tablet 05/13/16 Unknown Rx 5/325 mg] Ranolazine ER [Ranexa ER] 1,000 mg PO BID #60 tablet 01/04/17 03/16/17 Unknown Rx Active Meds: Active Medications Apixaban (Eliquis) 5 mg PO BID [facility] PRN Reason: Protocol Last Admin: 03/17/17 11:22 Dose: 5 mg Aspirin (Baby Aspirin) 81 mg PO DAILY [facility] Last Admin: 03/17/17 11:21 Dose: 81 mg Atorvastatin Calcium (Lipitor) 20 mg PO QHS [facility] Clopidogrel Bisulfate (Plavix) 75 mg PO QDAY [facility] Last Admin: 03/17/17 11:21 Dose: 75 mg Ferrous Sulfate (Feosol) 325 mg PO QDAY [facility] Last Admin: 03/17/17 11:21 Dose: 325 mg Fluticasone Propionate (Flonase) 50 mcg NS QDAY [facility] Last Admin: 03/17/17 11:23 Dose: 50 mcg Lisinopril (Zestril) 2.5 mg PO QDAY [facility] Last Admin: 03/17/17 11:19 Dose: 2.5 mg Metoprolol Succinate (Toprol Xl) 50 mg PO QDAY [facility] Last Admin: 03/17/17 11:18 Dose: 50 mg Oxycodone/Acetaminophen (Percocet 5/325) 1 tab PO Q8H PRN PRN Reason: Pain, Moderate (4-6) Last Admin: 03/17/17 12:44 Dose: 1 tab Pantoprazole Sodium (Protonix) 20 mg PO BID [facility] Last Admin: 03/17/17 11:19 Dose: 20 mg Ranolazine (Ranexa Er) 1,000 mg PO BID [facility] Last Admin: 03/17/17 11:19 Dose: 1,000 mg Zolpidem Tartrate (Ambien) 5 mg PO QHS PRN PRN Reason: Sleep Physical Examination Vital Signs Temp Pulse Resp BP Pulse Ox 97.5 F L 88 18 128/90 97 03/16/17 18:53 03/16/17 18:53 03/16/17 18:53 03/16/17 18:53 03/16/17 18:53 General appearance: no acute distress HEENT: Positive: PERRL Neck: Positive: trachea midline Cardiac: Positive: Reg Rate and Rhythm Results 03/16/17 22:13 03/16/17 19:04 Assessment and Plan Chest pain, atypical Hx of CAD s/p remote 3 vessel CABG [facility] 05/2016: patent SVG to RCA patent SVG to Diagonal occluded SVG to Circumflex system non obstructive disease of the [place] Circumflex and LAD DIAZ was not used. Ejection fraction 30-35% unchanged from [facility] 2011 Ischemic cardiomyopathy Presence of ICD Hypertension Prior DVT -on eliquis as an outpatient for anticoagulation
[2017-03-17 14:34] LABS: Creatine Kinase MB 1.2 ng/mL (0.0-4.0)
[2017-03-17 14:36] LABS: Creatine Kinase 35 units/L (55-170)
--- NOTE | 2017-03-17 20:50 | Progress Note ---
Assessment and Plan Assessment and plan: --Atypical chest pain Symptoms slightly improved Patient had a recent negative With patent grafts Ejection fraction 30- 35% Continue current cardiac medications, cardiology not planning any ischemic workup --Ischemic cardiomyopathy; ejection fraction of 30-35% Well compensated continue current anti-failure medications --Status post ICD; stable --Hypertension; well controlled, continue current antihypertensive medications --History of DVT, on chronic anticoagulation with the liquids --Obesity with BMI of 35-36 Counseling done patient strongly advised dietary modification and exercise as tolerated and weight reduction --Gastroesophageal reflux disease; continue proton pump inhibitors --Dyslipidemia stable on lipid-lowering medications Closely monitor the patient and adjust the management as needed Cardiology evaluation and recommendations noted and appreciated Possible discharge home in 1-2 days if stable. Plan of care discussed with the patient his nurse as well as the case management History Interval history: Patient seen and evaluated medical records reviewed Admitted with atypical chest pain and shortness of breath Today feels better still complains of intermittent chest pain Cardiology evaluated the patient no further workup recommended Alert awake oriented 3 not in acute distress Vital signs reviewed stable Hospitalist Physical - Constitutional Vitals: Temp Pulse Resp BP Pulse Ox 99.0 F 72 18 122/64 100 03/17/17 20:00 03/17/17 18:24 03/17/17 18:24 03/17/17 18:24 03/17/17 18:24 General appearance: Present: no acute distress, obese - EENT Eyes: Present: PERRL, EOM intact - Neck Neck: Present: supple, normal ROM - Respiratory Respiratory effort: normal Respiratory: bilateral: diminished, rales, negative: rhonchi, wheezing - Cardiovascular Rhythm: regular Heart Sounds: Present: S1 & S2 - Extremities Extremities: no ischemia, pulses intact, pulses symmetrical Peripheral Pulses: within normal limits - Abdominal General gastrointestinal: soft, non-tender, non-distended, normal bowel sounds - Integumentary Integumentary: Present: clear, warm - Psychiatric Psychiatric: appropriate mood/affect, cooperative - Neurologic Neurologic: CNII-XII intact, moves all extremities Results - Labs CBC & Chem 7: 03/16/17 22:13 03/16/17 19:04 Labs: Laboratory Last Values WBC 5.7 K/mm3 (4.5-11.0) 03/16/17 19:04 RBC 4.47 M/mm3 (3.65-5.03) 03/16/17 19:04 Hgb 13.0 gm/dl (11.8-15.2) 03/16/17 22:13 Hct 39.5 % (35.5-45.6) 03/16/17 22:13 MCV 92 fl (84-94) 03/16/17 19:04 MCH 31 pg (28-32) 03/16/17 19:04 MCHC 34 % (32-34) 03/16/17 19:04 RDW 13.7 % (13.2-15.2) 03/16/17 19:04 Plt Count 102 K/mm3 (140-440) L 03/16/17 22:13 Lymph % (Auto) 18.8 % (13.4-35.0) 03/16/17 19:04 [place] % (Auto) 8.8 % (0.0-7.3) H 03/16/17 19:04 Eos % (Auto) 1.2 % (0.0-4.3) 03/16/17 19:04 Baso % (Auto) 0.6 % (0.0-1.8) 03/16/17 19:04 Lymph # 1.1 K/mm3 (1.2-5.4) L 03/16/17 19:04 [place] # 0.5 K/mm3 (0.0-0.8) 03/16/17 19:04 Eos # 0.1 K/mm3 (0.0-0.4) 03/16/17 19:04 Baso # 0.0 K/mm3 (0.0-0.1) 03/16/17 19:04 Seg Neutrophils % 70.6 % (40.0-70.0) H 03/16/17 19:04 Seg Neutrophils # 4.0 K/mm3 (1.8-7.7) 03/16/17 19:04 PT 14.6 Sec. (12.2-14.9) 03/16/17 22:13 INR 1.15 (0.87-1.13) H 03/16/17 22:13 APTT < 20.0 Sec. (24.2-36.6) L 03/16/17 22:13 Heparin Anti-Xa Level < 0.10 U.I./ml (0.3-0.7) L 03/17/17 07:24 Sodium 142 mmol/L (137-145) 03/16/17 19:04 Potassium 3.5 mmol/L (3.6-5.0) L 03/16/17 19:04 Chloride 103.0 mmol/L (98-107) 03/16/17 19:04 Carbon Dioxide 24 mmol/L (22-30) 03/16/17 19:04 Anion Gap 19 mmol/L 03/16/17 19:04 BUN 13 mg/dL (9-20) 03/16/17 19:04 Creatinine 0.6 mg/dL (0.8-1.5) L 03/16/17 19:04 Estimated GFR > 60 ml/min 03/16/17 19:04 BUN/Creatinine Ratio 21.66 % 03/16/17 19:04 Glucose 135 mg/dL (75-100) H 03/16/17 19:04 Calcium 9.1 mg/dL (8.4-10.2) 03/16/17 19:04 Total Creatine Kinase 35 units/L (55-170) L 03/17/17 13:42 CK-MB (CK-2) 1.2 ng/mL (0.0-4.0) 03/17/17 13:42 CK-MB (CK-2) Rel Index 3.4 (0-4) 03/17/17 13:42 Troponin T < 0.010 ng/mL (0.00-0.029) 03/17/17 13:42
[2017-03-17 21:02] LABS: Creatine Kinase MB 1.3 ng/mL (0.0-4.0)
[2017-03-18] MEDS: PERCOCET 5/325 PO PRN (06:02)
--- NOTE | 2017-03-18 09:42 | Progress Note ---
Assessment and Plan Chronic stable angina Hx of CAD s/p remote 3 vessel CABG [facility] 05/2016:patent SVG to RCA patent SVG to Diagonal occluded SVG to Circumflex system non obstructive disease of the [place] Circumflex and LAD DIAZ was not used. Ejection fraction 30-35% medical therapy recommended for small vessel disease unchanged from [facility] 2011 Ischemic cardiomyopathy Presence of ICD Hypertension Prior DVT -on eliquis as an outpatient for anticoagulation Recommendations: Continue medical therapy for his cardiomyopathy and chronic stable angina of small vessel disease. Otherwise, conservative cardiac management. Upon discharge, patient advised to f/u with his primary dental office coordinator in [place], [place]. Subjective Date of service: 03/18/17 Interval history: Patient is resting in bed and appears comfortable. He denies chest pain. Objective Vital Signs Temp Pulse Pulse Pulse Resp Resp BP 03/18/17 04:17 98.4 F 75 18 114/64 03/18/17 00:59 98.7 F 64 18 129/67 03/17/17 20:00 99.0 F 03/17/17 18:24 98.1 F 72 18 122/64 03/17/17 16:14 84 03/17/17 14:24 98.2 F 70 18 143/82 03/17/17 12:44 20 03/17/17 12:33 03/17/17 10:00 85 86 20 20 Pulse Ox 03/18/17 04:17 97 03/18/17 00:59 98 03/17/17 20:00 03/17/17 18:24 100 03/17/17 16:14 03/17/17 14:24 100 03/17/17 12:44 03/17/17 12:33 98 03/17/17 10:00 99 - Physical Examination General: No Apparent Distress HEENT: Positive: PERRL Neck: Positive: trachea midline Cardiac: Positive: Other (paced) Lungs: Positive: Decreased Breath Sounds Neuro: Positive: Grossly Intact - Labs and Meds Cardiac Enzymes 03/17/17 03/17/17 Range/Units 13:42 20:11 CK-MB (CK-2) 1.2 1.3 (0.0-4.0) ng/mL - Imaging and Cardiology EKG: image reviewed
[2017-03-18] MEDS ORDERED: IMDUR PO SCH (10:00)
[2017-03-18] MEDS: BABY ASPIRIN PO SCH (10:38)
[2017-03-18] MEDS: ELIQUIS PO SCH (10:38)
--- NOTE | 2017-03-18 10:38 | Discharge Summary ---
Providers - Providers Date of Admission: 03/17/17 07:29 Date of discharge: 03/18/17 Attending physician: LLOYD SALAZAR Hospitalization Condition: Stable Exam - Constitutional Vitals: Temp Pulse Resp BP Pulse Ox 98.4 F 82 18 114/64 97 03/18/17 04:17 03/18/17 08:00 03/18/17 04:17 03/18/17 04:17 03/18/17 04:17 Plan Activity: no restrictions Diet: low salt, other (cardiac diet) Additional Instructions: f/u primary life scientists in [facility] Follow up with: PRIMARY CARE, [Referring] - 3-5 Days Prescriptions: ISOSORBIDE MONOnitrate [Imdur ER] 60 mg PO QDAY #30 tablet Ondansetron [Zofran TAB] 4 mg PO Q8HR PRN #15 tablet PRN Reason: Nausea oxyCODONE /ACETAMINOPHEN [Percocet 5/325 mg] 1 tab PO Q12H PRN #10 tablet PRN Reason: Pain
[2017-03-18] MEDS: PROTONIX PO SCH (10:39)
[2017-03-18] MEDS: FEOSOL PO SCH (10:39)
[2017-03-18] MEDS: RANEXA ER PO SCH (10:39)
[2017-03-18] MEDS: FLONASE NS SCH (10:39)
[2017-03-18] MEDS: PLAVIX PO SCH (10:41)
[2017-03-18] MEDS: ZESTRIL PO SCH (10:41)
[2017-03-18] MEDS: TOPROL XL PO SCH (10:42)
[2017-03-18 11:17] VITALS: BP 122/75
--- NOTE | 2017-03-18 13:01 | Query- Chest Pain ---
Aissatou Redmond_Esperanza Date:____03/18/17 Jewel Stripper/CDS:____Matt Clancy Phone#: [phone] Exercise your independent professional judgment when responding to query. Questions asked do not imply a particular answer is desired or expected. We greatly appreciate your clarification on this issue. Clinical Documentation States: 56 year old male was admitted on 03/17/17. The hospitalist progress note (03/17/17) states " Atypical chest pain Symptoms slightly improved Patient had a recent negative With patent grafts Ejection fraction 30- 35% Continue current cardiac medications, cardiology not planning any ischemic workup Gastroesophageal reflux disease; continue proton pump inhibitors " Please document the etiology of Chest Pain: [ ] Myocardial Infarction [ ] Pneumonia [ ] Mediastinitis [ ] Costochondritis [ ] Pulmonary Embolism [ ] Coronary Artery Disease [x ] GERD [ ] Other: [ ] Comment/Explanation: Present on Admission: [ x] Yes (Y) [ ] Clinically undeterminable (W) [ ] No(N) Please document response in your Progress Notes and/or Discharge Summary and indicate if the condition was present on admission. VÍCTOR
== END 2017-03-18 14:09 | disposition home or self-care (01) | DRG 392 ==
LOC: ED 18:22 → 4A 03-17 07:29
PROVIDERS: ADMIT Internal Medicine; ATTEND Internal Medicine
DX: K21.9 Gastro-esophageal reflux disease without esophagitis (principal); I10 Essential (primary) hypertension; E66.9 Obesity, unspecified; Z68.38 Body mass index [BMI] 38.0-38.9, adult; Z95.1 Presence of aortocoronary bypass graft; I25.5 Ischemic cardiomyopathy; Z79.82 Long term (current) use of aspirin; Z88.8 Allergy status to other drugs, medicaments and biological substances; Z91.041 Radiographic dye allergy status; Z86.73 Personal history of transient ischemic attack (TIA), and cerebral infarction without residual deficits; Z95.0 Presence of cardiac pacemaker; Z90.49 Acquired absence of other specified parts of digestive tract; Z98.49 Cataract extraction status, unspecified eye; I25.2 Old myocardial infarction; Z82.49 Family history of ischemic heart disease and other diseases of the circulatory system; E78.5 Hyperlipidemia, unspecified; I20.9 Angina pectoris, unspecified; Z71.3 Dietary counseling and surveillance
CPT/HCPCS: 36415; 71010; 80048; 82550; 82553; 84484; 85014; 85018; 85025; 85049; 85520; 85610; 85730; 93005; 93010; 96374; 96375; 99291; A9270-GY; J1170; J1644; J2405; Q0169